=== PATIENT | male | born 1990 | race Two or more races ===

== ENCOUNTER 2018-02-25 11:50 | Outpatient (CLI) | payer OTHER | END 2018-02-25 12:29 | disposition home or self-care (01) | LOC: RAD 501 11:50 | DX: M25.522 Pain in left elbow (principal); M79.632 Pain in left forearm ==

== ENCOUNTER 2018-02-25 13:37 | Outpatient (CLI) | payer OTHER | END 2018-02-25 13:45 | disposition home or self-care (01) | LOC: LAB 13:37 | DX: D64.89 Other specified anemias (principal); M06.4 Inflammatory polyarthropathy; M10.9 Gout, unspecified ==

== ENCOUNTER 2018-09-17 11:17 | Day surgery (SDC) | payer OTHER | END 2018-09-17 17:50 | disposition home or self-care (01) | LOC: CIR.AMB 11:17 | DX: M67.3 Transient synovitis (principal); M24.522 Contracture, left elbow ==